=== PATIENT | female | born 2000 | race Caucasian/White ===

== ENCOUNTER 2023-12-19 19:53 | Emergency (ER) | payer MEDICAID ==
[~2023-12-19] VITALS: Ht 160 cm; Wt 85.9 kg
[~2023-12-19 19:53] MED LIST: ADVIL200 MG PO; ATARAX 10MG10 MG/TAB; ATIVAN 1MG T1 MG/TAB PO; CEPHALEXIN250 M1 PO; CEPHALEXIN500 M1 PO; DESYREL 50MG50 MG PO; DESYREL DIVIDO150 M1 PO; DIFLUCAN 100MG100 MG PO; DOXYCYCLINE 10100 MG PO; EFFEXOR 75M75 MG/TAB PO; EFFEXOR XR75 MG/CAP PO; EFFEXOR-XR150 MG PO; FLAGYL500 MG PO; FLEXERIL 1010 MG/TAB PO; IBU600 MG PO; KEPPRA 500MG500 MG PO; KEPPRA1000 MG PO; KEPPRA750 MG PO; LAMICTAL 25MG T25 MG PO; LAMICTAL150 MG PO; LAMICTAL200 MG PO; LATUDA80 MG PO; LEXAPRO 10MG10 MG PO; MACROBID 1100 MG/CAP PO; MAG-OX 400400 MG/TAB PO; MELAT3MGTAB PO; MOTRIN 600600 MG/TAB PO; NATURAL IRON65 MG; NORCO 325 MG-51 TAB PO; PERCOCET 325 MG1 TA2 PO; PRENATAL; PRENATAL TABLET PO; PRENATAL1 TA1 PO; PROZAC40 MG PO; SENOKOT S 50 MG1 TAB PO; TOPAMAX 25MG25 M1 PO; ULTRAM 50MG TAB50 MG PO; VENLAFAXINE225 MG PO; VITAMIN C500 MG PO; VITAMIN D 400400 IU PO; VOLTAREN 75 DR75 MG PO; ZANTAC 150MG T150 MG PO; ZARONTIN250 MG PO; ZOFRAN 4MG T4 MG/TAB PO; ZOLOFT 25MG25 MG PO
[2023-12-19 20:30] VITALS: TEMP 99.6
[2023-12-19] MEDS ORDERED: Ondansetron 4 MG/2 ML VIAL IV ONE (23:00)
[2023-12-19] MEDS ORDERED: NS 1,000 ML IV ONE (23:00)
[2023-12-19 23:25] LABS: BASO # 0.1 K/mm3 (0.0-0.2); BASO % 0.4 % (0.0-2.0); EOS # 0.3 K/mm3 (0.0-0.7); EOS % 2.2 % (0.0-4.0); GRAN # 7.1 K/mm3 (1.4-6.5); GRAN % 63.3 % (42.2-75.2); HEMATOCRIT 41.5 % (37.0-47.0); HEMOGLOBIN 14.5 g/dl (12.5-16.0); LYMPH # 3.2 K/mm3 (1.2-3.4); LYMPH % 28.5 % (20.0-51.0); MEAN CELL VOLUME 86 fl (80.0-100.0); MEAN CORPUSCULAR HEMOGLOBIN 30 pg (27-31); MEAN CORPUSCULAR HGB CONC 35 g/dl (33.0-37.0); MEAN PLATELET VOLUME 8.6 fl (7.4-10.4); MONO # 0.6 K/mm3 (0.1-0.6); MONO % 5.4 % (1.7-9.3); PLATELET COUNT 349 K/mm3 (130-400); RED BLOOD COUNT 4.82 M/mm3 (4.10-5.30); REDCELL DISTRIBUTION WIDTH-CV 11.9 % (11.5-14.5)
[2023-12-19 23:43] LABS: BILIRUBIN,TOTAL 0.3 mg/dL (0.2-1.2); CALCIUM 9.5 mg/dL (8.4-10.2); CREATININE, serum 0.68 mg/dL (0.57-1.11); POTASSIUM 3.5 mEq/L (3.5-4.5); TOTAL PROTEIN 7.7 g/dl (6.2-8.1)
[2023-12-20 00:29] LABS: COLLECTION METHOD CLEAN CATCH
[2023-12-20 00:42] LABS: URINE APPEARANCE CLEAR (CLEAR/HAZY); URINE BLOOD NEGATIVE (NEGATIVE); URINE COLOR YELLOW (YELLOW); URINE GLUCOSE NEGATIVE (NEGATIVE); URINE KETONE TRACE (NEGATIVE); URINE NITRATE NEGATIVE (NEGATIVE); URINE PROTEIN(semi-quant) NEGATIVE (NEGATIVE); URINE UROBILINOGEN 0.2 E.U/dL (0.2-1.0)
[2023-12-20 01:20] VITALS: BP 100/59; PULSE 72
== END 2023-12-20 01:22 | disposition home or self-care (01) ==
LOC: COL.ER 19:53
PROVIDERS: Nurse Practitioner Primary Care
DX: O21.9 Vomiting of pregnancy, unspecified (principal); Z3A.01 Less than 8 weeks gestation of pregnancy
CPT/HCPCS: J2405; J7030